=== PATIENT | female | born 1945 | race Caucasian/White ===

== ENCOUNTER 2019-10-23 19:26 | Emergency (ER) | payer MEDICARE, SELFPAY ==
[2019-10-23 19:29] VITALS: BP 122/94; PULSE 86; RESP 16; TEMP 36.8; O2SAT 87
[2019-10-23 19:40] VITALS: BP 131/50; PULSE 84; RESP 20; O2SAT 100; O2SAT 99
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
[2019-10-23 20:51] VITALS: BP 130/48; PULSE 86; RESP 21; O2SAT 99
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
[2019-10-23 22:10] VITALS: BP 140/65; PULSE 77; RESP 18; O2SAT 100
[2019-10-23 22:39] VITALS: BP 149/73; PULSE 83; RESP 22; O2SAT 94
[2019-10-23 23:16] VITALS: BP 136/58; PULSE 77; RESP 20; O2SAT 96
[2019-10-23 23:21] LABS: Basophils Percent Auto 0.5 % (0.2-1.2); Eosinophils Absolute Auto 0.2 K/mm3 (0-0.3); Eosinophils Percent Auto 3.7 % (0-4.4); Hematocrit 30.5 % (37.0-47.0); Hemoglobin 8.8 g/dL (12.0-15.0); Immature Granulocyte Absolute 0.01 K/mm3 (0.00-0.031); Immature Granulocyte Percent A 0.2 % (0-0.5); Lymphocytes Percent Auto 12.8 % (18.3-44.2); Mean Corpuscular HGB Conc 28.9 g/dl (32-36); Mean Corpuscular Hemoglobin 24.6 pg (26-34); Mean Corpuscular Volume 85.4 fl (80-100); Mean Platelet Volume 10.9 fl (7.4-10.4); Monocytes Absolute Auto 0.6 K/mm3 (0.1-0.6); Monocytes Percent Auto 8.8 % (2.6-8.5); Neutrophils Absolute Auto 4.6 K/mm3 (1.3-6.7); Platelet Count Result 216 k/mm3 (150-375); Red Blood Count 3.57 M/mm3 (4.2-5.4); Red Cell Distribution Width 18.7 % (11.5-14.5); White Blood Count 6.3 K/mm3 (4.5-10.0)
[2019-10-23 23:28] LABS: Prothrombin Time 22.2 Seconds (11.1-14.7)
[2019-10-23 23:29] LABS: Partial Thromboplastin Time 39.6 SECONDS (22.3-36.8)
[2019-10-23 23:35] LABS: Blood Urea Nitrogen 11 mg/dL (7-17); Calcium 8.9 mg/dL (8.4-10.2); Carbon Dioxide 36 mmol/L (22-30); Chloride 86 mmol/L (98-107); Estimated CRCL calculation 66 ml/min; Estimated Glomerular Filt Rate > 60; Glucose 436 mg/dL (65-105); Potassium 3.8 mmol/L (3.4-5.0); Sodium 133 mmol/L (137-145)
[2019-10-23 23:41] LABS: Hypochromasia 1+ (NORMAL); Ovalocytes 1+ (NORMAL); Platelet Estimate Adequate (Adequate)
--- NOTE | 2019-10-23 23:50 | PC.NURSE ---
called pt's daughter Brooke [phone]. Asked her to find and review pt's medication list with rn so RN can give pt proper medications. Brooke, pt's daughter states It is out in the car and I am in bed. I basically know all of her medications. When RN asked Brooke if she knew when the pt took each medication, how often, and how many mg Brooke stated: I don't know that. Brooke, requesting to talk w/ her mother. Informed Brooke that pt will call her from her cell phone. RN Asked Brooke if she could please go look for pt's medication list in the car. Brooke states: It is night time, I am not going to do that. Brooke hung up the phone on RN. EDP and foreign diplomat notified.
[2019-10-24] VITALS (14 sets, daily range): BP systolic 111–132; BP diastolic 48–63; PULSE 69–101; RESP 15–22; O2SAT 87–99
[2019-10-24] MEDS: GABAPENTIN 100 MG CAPSULE 200 MG PO (01:35)
[2019-10-24] MEDS: metFORMIN HCL 500 MG TABLET 1000 MG PO (01:36)
[2019-10-24] MEDS: INSULIN GLARGINE (*BKC) 100 UNITS/ML 40 UNITS SUB-Q (01:36)
[2019-10-24 01:37] LABS: Glucose Point of Care 423 (65-105)
[2019-10-24 02:58] LABS: Glucose Point of Care 380 (65-105)
--- NOTE | 2019-10-24 07:05 | PC.NURSE ---
called care coordination in regards to the pt needing oxygen.
[2019-10-24] MEDS: FUROSEMIDE 40 MG TABLET PO (11:38)
[2019-10-24] MEDS: carvediloL 6.25 MG TABLET PO (11:38)
--- NOTE | 2019-10-24 12:38 | PC.NURSE ---
PULSE OX 85% ON RA WHILE SITTING UP IN BED. O2 2L PER N/C REAPPLIED.
--- NOTE | 2019-10-24 13:50 | PCCCNOTE ---
Spoke with patient at bedside regarding her need for O2 at discharge. According to patient, she has 6 full tanks of oxygen and an O2 concentrator, previously prescribed, in a storage shed. Discharge from the ER has been delayed because patient felt that the O2 concentrator was too heavy for her daughter to bring to her current place of residence, the [address] in [place], [place]. According to patient, her daughter is now able to bring two O2 tanks with her when she picks up the patient and that the patient will make arrangements for the O2 concentrator and/or additional O2 tanks to be brought to where she is staying. Advised patient that each tank will only deliver 2L per nc for 3.5 - 4 hrs (even though [facility] states a full tank will last approximately 4.5 hours) and that it is important to have the O2 delivered before she runs out of oxygen. Spoke with [facility] regarding the patient's current status and arranged for Respiratory to complete a 6 min walk test and complete the required documentation for home O2 qualification. Prescription for Home O2 services given to patient. Provided patient's contact information to [facility] and requested a home visit today.
--- NOTE | 2019-10-24 14:18 | PCRCNOTE ---
NEW HOME O2 EVAL/ORDER ENTERED AND FAXING TO [facility]. PT ALREADY HAS O2 WITH THIS DME, ALTHOUGH PAPERWORK WITH DME FROM [facility] SET UP WASNT COMPLETELY ESTABLISHED WHICH HAS REQUIRED A REPEAT. PT HAS SOME O2 TANKS AVAILABLE AND WILL ALSO HAVE A CONCENTRATOR TO HOTEL ROOM TODAY. I WILL CONTACT DME AND ADDRESS THE NEED THAT THIS PT HAS ALL REQUIRED O2 NEEDS.
--- NOTE | 2019-10-24 16:41 | PCCCNOTE ---
Followed up with [facility] regarding ability to provide services tonight as pt only has 2 full cylinders of O2. According to [facility] their tech is currently with the patient and will be providing additional cylinders of O2 as well as investigating whether she has the O2 concentrator located in her storage shed.
== END 2019-10-24 14:30 | disposition home or self-care (01) ==
PROVIDERS: General Practice; Emergency Provider Emergency Medicine
DX: J44.9 Chronic obstructive pulmonary disease, unspecified (principal); Z99.81 Dependence on supplemental oxygen; Z87.891 Personal history of nicotine dependence; D64.9 Anemia, unspecified; F41.9 Anxiety disorder, unspecified; M19.90 Unspecified osteoarthritis, unspecified site; I25.10 Atherosclerotic heart disease of native coronary artery without angina pectoris; Z79.01 Long term (current) use of anticoagulants; F32.9 Major depressive disorder, single episode, unspecified; K21.9 Gastro-esophageal reflux disease without esophagitis; I10 Essential (primary) hypertension; E03.9 Hypothyroidism, unspecified; G47.30 Sleep apnea, unspecified; E11.42 Type 2 diabetes mellitus with diabetic polyneuropathy; Z79.4 Long term (current) use of insulin
CPT/HCPCS: 36415; 80048; 82948; 85025; 85610; 85730; 99284; A9270; J1815